=== PATIENT | female | born 1955 | race African-American/Black ===

== ENCOUNTER 2020-06-14 11:53 | Emergency (ER) | payer MEDICAID ==
[~2020-06-14] VITALS: Ht 154.9 cm; Wt 86.0 kg
[2020-06-14] MEDS ORDERED: ACETAMINOPHEN 325MG TABLET PO ONE (13:45)
[2020-06-14 15:17] VITALS: BP 159/86
== END 2020-06-14 15:19 | disposition home or self-care (01) ==
LOC: EDSEX 11:53 → ER 12:42
DX: R07.89 Other chest pain (principal); M25.512 Pain in left shoulder; Z88.6 Allergy status to analgesic agent
CPT/HCPCS: 71045; 73030; 73110; 73562; 99284